=== PATIENT | male | born 1950 | race Caucasian/White ===

== ENCOUNTER 2017-07-18 06:28 | Day surgery (SDC) | payer OTHER, BC ==
[~2017-07-18] VITALS: Ht 185.4 cm; Wt 98.4 kg
[~2017-07-18 06:28] MED LIST: ASPIRIN325 MG PO; COZAAR25 MG PO; FLONASE16 G1 BOTH NARES; LOPRESSOR25 MG PO; SIMVASTATIN40 MG PO
[2017-07-18 07:20] VITALS: BP 145/67
[2017-07-18 10:30] VITALS: BP 159/67
[2017-07-18 11:00] VITALS: BP 160/70
== END 2017-07-18 11:11 | disposition home or self-care (01) ==
LOC: SDC 06:28
DX: T85.22XA Displacement of intraocular lens, initial encounter (principal); H43.01 Vitreous prolapse, right eye
CPT/HCPCS: J0690; J2405

== ENCOUNTER → 2017-08-02 | Outpatient (CLI) | payer MEDICARE, BC | END | disposition home or self-care (01) | LOC: CDC 11:34 | DX: Z12.11 Encounter for screening for malignant neoplasm of colon (principal); R00.1 Bradycardia, unspecified | CPT/HCPCS: 93000 ==